=== PATIENT | male | born 1965 | race Two or more races ===

== ENCOUNTER → 2016-07-26 | Outpatient (CLI) | payer SELFPAY ==
--- NOTE | 2016-07-26 12:12 | KCIC ---
CHEST, TWO VIEWS, 07/26/2016: History: Chronic cough The heart is within normal limits in size. There are extensive bilateral pulmonary infiltrates with dominant involvement of the upper lobes. This represents a combination of airspace, reticulonodular and streaky parenchymal opacities. There is pleural thickening over the left apex. There is superior retraction of both anjali indicating a component of fibrosis. There is loss of definition of the left lateral margin of the superior mediastinum adjacent to the aortic arch due to the adjacent pleural -parenchymal opacities. The anjali are obscured by the infiltrates. No pleural fluid is evident. IMPRESSION: Extensive bilateral parenchymal infiltrates with left apical pleural thickening in superior retraction of both anjali. 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 Active infection such as TB or underlying neoplasm cannot be excluded. Correlation with previous chest radiographs if available and/or CT scanning is suggested for further evaluation. Electronically signed by: Boni Kennedy MD (Jul 26, 2016 12:11:30)
== END | disposition home or self-care (01) ==
LOC: KCIC 11:35
DX: R91.8 Other nonspecific abnormal finding of lung field (principal)
CPT/HCPCS: 71020